=== PATIENT | male | born 1940 | race Caucasian/White ===

== ENCOUNTER 2021-07-29 02:26 | Inpatient (IN) | payer MEDICARE, SELFPAY ==
[~2021-07-29] VITALS: Ht 182.9 cm; Wt 83.9 kg
[2021-07-29 02:58] VITALS: BP_SYST 128
--- NOTE | 2021-07-29 02:58 | NUR ---
Patient to ER bed 1 to gown for evaluation. Side rails up. Report given to Nataly. OMARI Marin at bedside examining patient.
[2021-07-29] MEDS ORDERED: ONDANSETRON HCL 4 MG/2 ML VIAL IVP ONE (03:45)
[2021-07-29] MEDS ORDERED: HYDROmorphone 1 MG/ML INJ. CARTRIDGE IVP ONE (03:45)
--- NOTE | 2021-07-29 04:29 | NUR ---
Pt just brought back [place] by [facility] via gurney. will be starting IV and giving pain med Dilaudid 1mg IV plus zofran 4mg. Pt reconnected to monitor, VSS
[2021-07-29] MEDS ORDERED: KETOROLAC TROMETHAMINE 15 MG VIAL IVP PRN ×2 (06:30→09:15)
[2021-07-29 06:50] LABS: BASOPHILS % (AUTO) 0.2 % (0.0-2.0); EOSINOPHILS # (AUTO) 0.1 K/uL (0.0-0.4); EOSINOPHILS % (AUTO) 3.6 % (0.0-4.0); HEMATOCRIT 34.5 % (36-54); LYMPHOCYTES # (AUTO) 0.8 K/uL (1.0-5.5); LYMPHOCYTES % (AUTO) 28.8 % (20.5-51.5); MEAN CORPUSCULAR HEMOGLOBIN 34 pg (27-31); MEAN CORPUSCULAR HGB CONC 35 % (32-36); MEAN CORPUSCULAR VOLUME 98 fL (79.0-98.0); MONOCYTES # (AUTO) 0.2 K/uL (0.0-1.0); MONOCYTES % (AUTO) 6.7 % (1.7-9.3); NEUTROPHILS # (AUTO) 1.8 K/uL (1.8-7.7); NEUTROPHILS % (AUTO) 60.7 % (40.0-70.0); PLATELET COUNT (AUTO) 120 K/uL (130-430); RED BLOOD CELL COUNT(AUTO) 3.51 MIL/uL (4.2-6.2); WHITE BLOOD COUNT (AUTO) 2.9 K/uL (4.8-10.8)
[2021-07-29] MEDS ORDERED: VITD2000 PO (06:50)
[2021-07-29] MEDS ORDERED: CYAN100010 PO (06:50)
[2021-07-29] MEDS ORDERED: MV-M1CAP15 PO (06:50)
[2021-07-29] MEDS ORDERED: CARB1TAB21 PO ×2 (06:50)
[2021-07-29] MEDS ORDERED: MIRA25TA PO (06:50)
[2021-07-29] MEDS ORDERED: CEL20 PO (06:50)
[2021-07-29] MEDS ORDERED: ROPI0.5T4 PO (06:50)
[2021-07-29] MEDS ORDERED: SIMV20TA2 PO (06:50)
[2021-07-29] MEDS ORDERED: ECON70FO TP (06:50)
[2021-07-29] MEDS ORDERED: CALC0.258 PO (06:50)
[2021-07-29] MEDS ORDERED: ASPI-1393 PO (06:50)
[2021-07-29] MEDS ORDERED: ENTA200T2 PO (06:50)
[2021-07-29] MEDS ORDERED: TAMS-11 PO (06:50)
[2021-07-29 07:01] LABS: ANION GAP 5 (5-15); CALCIUM 8.3 mg/dL (8.4-11.0); CHLORIDE 103 mmol/L (98-107); CREATININE 1.07 mg/dL (0.55-1.30); GLUCOSE 105 mg/dL (70-99); POTASSIUM 4.2 mmol/L (3.5-5.1); SODIUM SERUM 139 mmol/L (136-145); UREA NITROGEN, BLOOD 28 mg/dL (8-21)
[2021-07-29 07:16] LABS: ALANINE AMINOTRANSFERASE 8 U/L (12-78); ALBUMIN 3.3 g/dL (3.4-4.8); ASPARTATE AMINOTRANSFERASE 12 U/L (10-37); TOTAL BILIRUBIN 0.7 mg/dL (0.0-1.0)
--- NOTE | 2021-07-29 07:30 | NUR ---
Pt in bed resting with no c/o. A&Ox4. Ambulatory with steady gait. Skin intact. HR elevated at 108, all other vitals stable. Denies any pain or discomfort. Urinal emptied. Bed in lowest position. Addendum: 07/29/21 at 0753 by [id number] Pt in bed sleeping. Has no s/s of distress. VSS. Still waiting for a bed to become available [facility]. Denies ay pain or discomfort. Urinal emptied. Bed in lowest position.
--- NOTE | 2021-07-29 07:46 | NUR ---
Covid swab done and taken to lab. VSS.
[2021-07-29] MEDS ORDERED: CHOLECALCIFEROL (VITAMIN D3) 2,000 UNIT TABLET PO ONE (09:00)
[2021-07-29] MEDS ORDERED: calcitrioL 0.25 MCG CAPSULE PO ONE (09:00)
[2021-07-29] MEDS ORDERED: ASPIRIN 81 MG TABLET(ECOTRIN) PO ONE (09:00)
[2021-07-29] MEDS ORDERED: CITALOPRAM HYDROBROMIDE 20 MG TABLET PO ONE (09:00)
[2021-07-29] MEDS ORDERED: CARBIDOPA/LEVODOPA 25/100 MG TABLET PO ONE (09:00)
[2021-07-29] MEDS ORDERED: CYANOCOBALAMIN 1000 mCg TABLET PO ONE (09:00)
[2021-07-29] MEDS ORDERED: TAMSULOSIN HCL 0.4 MG CAP PO ONE (09:00)
--- NOTE | 2021-07-29 09:00 | NUR ---
Dr. Tse at bedside.
--- NOTE | 2021-07-29 09:14 | NUR ---
MRI Patient Questionnaire completed and signed.
[2021-07-29] MEDS ORDERED: ACETAMINOPHEN 325 MG TABLET PO PRN (09:15)
[2021-07-29] MEDS ORDERED: NALOXONE HCL 0.4 MG/ML AMP (NARCAN) IVP PRN (09:15)
[2021-07-29] MEDS ORDERED: ONDANSETRON HCL 4 MG/2 ML VIAL IVP PRN (09:15)
[2021-07-29] MEDS ORDERED: HYDROmorphone 1 MG/ML INJ. CARTRIDGE IVP PRN (09:15)
[2021-07-29 09:21] LABS: ERYTHROCYTE SEDIMENTATION RATE 8 MM/HR (0-15)
--- NOTE | 2021-07-29 09:43 | NUR ---
Urine collected and sent to lab. Pt has no c/o. A&Ox4. VSS.
[2021-07-29 10:15] VITALS: BP_SYST 150
--- NOTE | 2021-07-29 10:27 | NUR ---
Patient will be admitted to care of Dr. Tse. Admitted to MedSurg unit. Will go to room 132A. Belongings list completed. Complete and up to date summary report printed. SBAR report to be given at bedside with opportunity for questions.
--- NOTE | 2021-07-29 10:30 | NUR ---
Opening Notes Received patient via gurney, stable at this time. Patient was able to transfer self from gurney to bed, noted with grimacing, noted with weakness, especially on left leg. Patient is awake, alert and oriented x4. No resp distress noted. Breathing is even and unlabored. Pt denies any pain at this time. Pt remains on RA at this time. Pt denies any cough/SOB. Per patient, he is vaccinated with Pfizer x3. IV site on left AC 20 gauge intact, flushing well, C/D/I. Minimal bruising noted on left upper thigh, pt denies any pain at this time. Neurochecks performed on lower extremities: WNL. Able to wiggle toes, pulse present, warm to touch. Patient was oriented to the room, taught use of the call light. Pt successful in return demo of call light. Oriented to care team and plan of care. Pending consults: hematology, ortho, and neurology. All needs met at this time. Safety and fall precautions in place. Bed in lowest position, alarm on, locked. Will continue to monitor.
[2021-07-29] MEDS: COMTAN 200 MG TAB PO SCH ×3 (10:38→17:12)
[2021-07-29 10:44] VITALS: BP_SYST 150
[2021-07-29 11:56] LABS: BILIRUBIN,URINE NEGATIVE (NEGATIVE); BLOOD, URINE NEGATIVE (NEGATIVE); CLARITY/URINE CLEAR (CLEAR); COLOR,URINE YELLOW (YELLOW); GLUCOSE,URINE NEGATIVE (NEGATIVE); KETONES,URINE NEGATIVE (NEGATIVE); LEUKOCYTE ESTERASE ,URINE 2+ (NEGATIVE); NITRITE, URINE POSITIVE (NEGATIVE); PROTEIN URINE NEGATIVE (NEGATIVE); UROBILINOGEN,URINE 0.2 (0.2-1.0)
[2021-07-29 12:00] VITALS: BP_SYST 147
--- NOTE | 2021-07-29 12:00 | NUR ---
Notes Patient is laying in bed, resting at this time. No resp distress noted. Breathing is even and unlabored. Pt reports intermittent burning pain from his left thigh, no pain meds requested at this time. Pending consult with Dr. Westbrook.
[2021-07-29 12:34] LABS: BACTERIA,URINE MODERATE /HPF (None Seen); RBC,URINE 0-3 /HPF (0-3)
[2021-07-29 12:35] LABS: MUCUS,URINE 1+ /LPF (None Seen)
--- NOTE | 2021-07-29 14:00 | NUR ---
Patient is being seen and examined by PHYSICAL THERAPY.
--- NOTE | 2021-07-29 14:13 | NUR ---
CONSULTATION PAGED/CALLED Reason for Consultation: [] PANCYTOPENIA Person Who was Notified: [] BARON Consulting Physician: [] DR SANCHEZ Gear Straightener Specialty: [] ONCO/NATALIE Ordering Physician: [] DR SHEFFIELD
--- NOTE | 2021-07-29 14:15 | NUR ---
CONSULTATION PAGED/CALLED Reason for Consultation: [] L THIGH PAIN Person Who was Notified: [] YADY Consulting Physician: [] DR PERKINS Board Machine Set Up Operator Specialty: [] ORTHO Ordering Physician: [] DR NETTIE PERKINS DOES NOT TAKE [facility]
--- NOTE | 2021-07-29 14:20 | NUR ---
CONSULTATION PAGED/CALLED Reason for Consultation: [] PARKINSONS Person Who was Notified: [] DR NICHO HANSEN Consulting Physician: [] DR NICHO HANSEN SLURRY TANK OPERATOR FOR DR BELTRAN Tobacco Educator Specialty: [] NEURO Ordering Physician: [] DR SHEFFIELD
--- NOTE | 2021-07-29 14:40 | NUR ---
Patient is being seen and examined by DR. HANSEN (neurology).
[2021-07-29] MEDS: CARBIDOPA/LEVODOPA 25/100 MG TABLET PO SCH ×2 (14:54→17:12)
[2021-07-29] MEDS: roPINIRole HCL 0.25 MG ( REQUIP )TABLET PO SCH ×2 (14:55→17:12)
[2021-07-29 16:00] VITALS: BP_SYST 131
--- NOTE | 2021-07-29 16:00 | NUR ---
Notes Patient is awake, alert and oriented x4, resting at this time. No resp distress noted. Breathing is even and unlabored. Pt remains on RA at this time. NO c/o pain at this time. Pt to remain NPO for US ABDOMEN. Will continue to monitor.
--- NOTE | 2021-07-29 16:00 | NUR ---
Patient is being seen and examined by DR. SANCHEZ.
--- NOTE | 2021-07-29 16:59 | NUR ---
Vy Vazquez by bedside. Took home patients black wallezequiel with $308.00 (aguilar).
[2021-07-29 17:58] VITALS: BP_SYST 133
--- NOTE | 2021-07-29 18:43 | NUR ---
Closing Notes Patient is awake, alert and oriented x4. No resp distress ntoed. Breathing is even and unlabored. Pt denies any pain at this time. Pending discharge. IV access was removed, catheter intact. No signs of bleeding at this time. Pt was educated on discharge instruction: DC back to [facility]), continue all meds and follow up with PCP Simon and surgeons. Pt aware and agreed. Med Reconciliation completed. Pt was given his at home medications Mybertiq (that was brought in by daughter.) Pt has all belongings with him. Will continue to monitor until daughter picks patient up.
[2021-07-29] MEDS ORDERED: SIMVASTATIN 20 MG TABLET PO SCH (21:00)
[2021-07-30] MEDS ORDERED: CYANOCOBALAMIN 1000 mCg TABLET PO SCH (09:00)
[2021-07-30] MEDS ORDERED: CITALOPRAM HYDROBROMIDE 20 MG TABLET PO SCH (09:00)
[2021-07-30] MEDS ORDERED: CHOLECALCIFEROL (VITAMIN D3) 2,000 UNIT TABLET PO SCH (09:00)
[2021-07-30] MEDS ORDERED: MULTIVITAMINS TAB 1 TABLET PO SCH (09:00)
[2021-07-30] MEDS ORDERED: TAMSULOSIN HCL 0.4 MG CAP PO SCH (09:00)
[2021-07-30] MEDS ORDERED: calcitrioL 0.25 MCG CAPSULE PO SCH (09:00)
[2021-07-30] MEDS ORDERED: ASPIRIN 81 MG TABLET(ECOTRIN) PO SCH (09:00)
--- NOTE | 2021-07-30 10:04 | NUR ---
Discharge Planning: DCP faxed pt referral to [facility], PT, disease management.
== END 2021-07-29 19:00 | disposition home health service (06) | DRG 552 ==
LOC: SED 02:26 → SMU 06:22
PROVIDERS: ADMIT Internal Medicine; ATTEND Internal Medicine
DX: M54.32 Sciatica, left side (principal); D61.818 Other pancytopenia; M47.26 Other spondylosis with radiculopathy, lumbar region; M16.0 Bilateral primary osteoarthritis of hip; G25.81 Restless legs syndrome; G20 Parkinson's disease; Z20.822 Contact with and (suspected) exposure to COVID-19; D46.9 Myelodysplastic syndrome, unspecified; Z79.82 Long term (current) use of aspirin; Z79.899 Other long term (current) drug therapy
CPT/HCPCS: 36415; 73502; 73700-TC; 76376; 80053; 81000; 83605; 85025; 85651-TC; 85730-TC; 87040; 87086; 96374; 96375; 99285; J1170; J2405